=== PATIENT | male | born 1975 | race Caucasian/White ===

== ENCOUNTER 2017-01-13 11:51 | Observation (INO) ==
[2017-01-13] MEDS ORDERED: Ondansetron 4 MG/2 ML VIAL IVP PRN (15:44)
[2017-01-13] MEDS ORDERED: Acetaminophen 325 MG TABLET PO PRN (15:44)
[2017-01-13] MEDS ORDERED: Naloxone 0.4 MG/ML INJ IVP PRN (15:44)
[2017-01-13] MEDS ORDERED: 0.9 % Sodium Chloride 1,000 ML IVC SCH (15:45)
[2017-01-13] MEDS ORDERED: *HR* LORazepam 2 MG/ML VIAL IVP PRN (15:49)
--- NOTE | 2017-01-13 15:53 | Internal Med History&Physical ---
Date of Encounter: 01/13/17 Time of Encounter: 15:15 Assessment and Plan (1) New onset seizure Current visit: Yes Status: Acute Uncertain etiology. Will use when necessary IV Ativan for repeat seizures. IV hydration. Seizure precautions. CT head done in the emergency room showed no acute abnormality. Mild leukocytosis and metabolic acidosis and lactic acidosis likely related to seizure. Urine drug screen was negative. Continue telemetry monitoring and cycle troponins. Check MRI brain. Neurology consult. (2) Lactic acidosis Current visit: Yes Status: Acute Internal Medicine - H&P: HPI Chief complaint: Seizure Admitted From: Emergency Dept Plans for Post Hospital Care: Home History of present illness: Mr. Antonio is a 41 year old male with no significant past medical history and no medical follow-up is brought in by family with complaints of witnessed seizure this morning. Patient was transferred from [place] emergency room. Patient is currently alert and oriented however does not wish to provide detailed history, which is obtained from his at bedside. Patient is usually healthy and never sees a doctor and had no previous hospitalizations. He was in his usual state of health until this morning when his heard a sound from his room and found him to be thrashing on the ground, "like a fish out of water". No tongue bite but urinary incontinence is reported. He is jerking movements went on for at least 10 minutes before the EMS arrived after which his eyes continue to be ruled out and he was trying to grab the surrounding things onto himself. He received a dose of IV Ativan by EMS. No repeat episodes. He was noted to have some confusion and drowsiness immediately after this episode and his mental status gradually returned to baseline. No history of prior seizures, head trauma, intracranial bleed or malignancy in the past. Patient occasionally smokes marijuana but no alcohol use, methamphetamines and prescription drug abuse. Past Med Surg Social Fam HX - Past Medical History Medical history: no medical history Psychiatric history: no psych history - Past Surgical History Surgical History: no surgical history - Social History Smoking Status: Never smoker Smokeless Tobacco Status: No Alcohol use: none Drug use: marijuana Current living situation: Home, With Family Activity Level: Independent ambulation Recent Out of Country Travel Within the Last 8 Weeks: No - Family History Mother Hx Family Cardiac Disorders: Yes Hx Family Respiratory Disorders: Yes Internal Medicine - H&P: Meds No Known Home Drugs 01/13/17 [History] Allergies No Known Allergies Allergy (Verified 01/13/17 09:24) All Systems PM: A 10-system review of systems was performed and is negative for pertinent findings except as documented above in the HPI. - Constitutional Constitutional: no chills, no fever(s), no night sweats - EENT Eyes: no change in vision, no discharge, no pain, no photophobia Ears: no ear discharge, no ear pain, no tinnitus Nose, mouth and throat: no dysphagia, no nasal discharge, no neck pain, no sore throat - Cardiovascular Cardiovascular ROS IM: no chest pain, no diaphoresis, no dyspnea, no lightheadedness, no palpitations, no syncope - Respiratory Respiratory: no cough, no dyspnea, no wheezing, no excessive phlegm production - Gastrointestinal Gastrointestinal: no abdominal pain, no diarrhea, no hematemesis, no hematochezia, no melena, no nausea, no vomiting - Musculoskeletal Musculoskeletal ROS IM: no numbness, no tingling - Integumentary Integumentary IM: no rash, no unusual bruising - Neurological Neurological ROS: abnormal movements, behavioral changes, confusion, convulsions - Hematologic/Lymphatic Hematologic/Lymphatic: no easy bruising - Constitutional Vitals: Temp Pulse Resp BP Pulse Ox 97.8 F 82 15 124/74 99 01/13/17 13:21 01/13/17 13:21 01/13/17 13:21 01/13/17 13:21 01/13/17 13:21 General appearance: Present: A&O X 3, answers questions appropriately - Respiratory Respiratory exam: Present: CTAB. Absent: accessory muscle use, rales, rhonchi, wheezes - Cardiovascular Cardiovascular exam: Present: RRR, +S1, +S2. Absent: diastolic murmur, gallop, rubs, systolic murmur - GI/Abdominal GI/Abdominal exam: Present: normal bowel sounds, soft, no peritoneal signs. Absent: distended, tenderness - Extremities Exam Extremities exam: Present: full ROM, warm, radial pulses palpable and symetrical. Absent: calf tenderness, cyanotic, pedal edema - Neurological Exam Neurological exam: Present: CN II-XII intact, oriented X3, no focal deficits. Absent: pronater drift, facial droop, speech deficit - Skin Skin exam: Present: dry, intact Internal Med - H&P Results - EKG Data -: EKG Interpreted by Myself EKG shows normal: sinus rhythm
--- NOTE | 2017-01-13 17:02 | Neurology - Consult Note ---
Date of Encounter: 01/13/17 Time of Encounter: 16:55 Assessment and Plan (1) New onset seizure Current Visit: Yes Status: Acute one isolated generalized seizure activity, likely provoked by sleep deprivation and stress. no other significant provoking factors noted. No intermittent jerking or starring spells reported. laboratory studies are still pending. May be a good idea to obtain urine drug screen. Currently patient has fully recovered and has non focal neurological examination with normal mentation. Will obtain MRI of brain to rule out intracranial abnormality. Will not recommend antiepiletpic therapy at this time. EEG can be arranged as outpatient. Patient can be followed up in neurology clinic within one or two weeks. History of Present Illness Chief complaint: seizure HPI: Mr. Antonio is a 41 year old male with no significant PMH who developed witnessed seizure. This occurred this morning. heard a noise and saw him fell on the floor and 'flipping like a fish'. He was face down and was having ' shaking activity', apparently for quite prolonged of the time, may be about 10 minutes, after which he became confused and combative and tried to get up but often went down again. The whole seizure lasted about 20 minutes?. No tongue biting, but has urinary incontinence. CT of head showed no acute intracranial abnormality. Patient is currently asymptomatic. He did not remember anything regarding the seizure. reports that he has been under lots of stress lately due to of friend. He tends to stay very late at night been having difficulty sleeping. states that he stayed all night long last night before the seizure. No alcohol or other drugs involved, except 'smoke pot like every one does'. Past Med Surg Social Fam HX - Past Medical History Medical history: no medical history Psychiatric history: no psych history - Past Surgical History Surgical History: no surgical history - Social History Smoking Status: Never smoker Smokeless Tobacco Status: No Alcohol use: none Drug use: marijuana - Family History Mother Hx Family Cardiac Disorders: Yes Hx Family Respiratory Disorders: Yes Medications and Allergies No Known Home Drugs 01/13/17 [History] Allergies No Known Allergies Allergy (Verified 01/13/17 09:24) All Systems: A 10-system review of systems was performed and is negative for pertinent findings except as documented above in the HPI. Physical Examination - Vital Signs Vital Signs: Initial Vital Signs Temp Pulse Resp BP Pulse Ox 97.8 F 82 15 124/74 99 01/13/17 13:21 01/13/17 13:21 01/13/17 13:21 01/13/17 13:21 01/13/17 13:21 - Constitutional General appearance: comfortable - Neurologic Sensorimotor examination: intact Detailed motor examination: full strength in all major muscle groups Motor examination - right side: 11/04: deltoids, biceps, triceps, wrist flexion, wrist extension, route delivery supervisor, hip flexors, tibialis Anterior, quadriceps, toe extension (EHL), plantarflexion Motor examination - left side: 11/04: deltoids, biceps, triceps, wrist flexion, wrist extension, hip flexors, route delivery supervisor, quadriceps, tibialis Anterior, toe extension (EHL), plantarflexion Detailed sensory examination: intact Posture: other (None) Reflex and gait examination: intact Reflexes: Biceps: 2+, Triceps: 2+, Brachioradialis: 2+, Patella: 2+, Achilles: 2 + Mental Status Examination: awake, alert, oriented to person, oriented to place, oriented to time, follows commands appropriately, answers questions appropriately, no agnosia, no aphasia, no aproxia Cranial nerve examination: PERRL, EOMI, visual quijano intact, corneal reflexes brisk symmetrically, sensory to face intact, mastication intact, no facial asymmetry is present, no dysarthria, hearing is intact symmetrically, soft palate elevates bilaterally upon phonation, gag reflex intact, flexes SCM and trapezius muscles symmetrically with full power, tongue protrudes midline, no atrophy or facial fasiculations present Cerebellar examination: no dysmetria, performs finger to nose and heel to novak symmetrically without ataxia, no gait ataxia, no truncal ataxia, no difficulty with rapid alternating movements Consult Discharge Plan - Plan Referrals: NO,PCP [Primary Care Provider] -
[2017-01-13 18:52] VITALS: BP 116/69
--- NOTE | 2017-01-24 07:42 | Discharge Summary ---
Date of Encounter: 01/13/17 Time of Encounter: 20:00 - Discharge Diagnosis (1) New onset seizure Priority: Primary Status: Inactive (2) Lactic acidosis Priority: Primary Status: Acute - Discharge Medications Home Medications: No Known Home Drugs 01/13/17 [History] Allergies/Adverse Reactions: Allergies No Known Allergies Allergy (Verified 01/13/17 09:24) Date of admission: 01/13/17 13:07 Primary care physician: PCP NO Consults: 01/13/17 15:46 Consult to Neurology [CONS] Routine Consulting Provider: [facility] Reason for Consult: New onset generalized tonic clonic seizure Call Completed: No - Patient Status Disposition: Left Against Medical Advice Condition: Fair Functional capacity at discharge: independent ambulation - Discharge Instructions Follow Up With: HELADIO,PCP [Primary Care Provider] - Skinny Rojas MD [Partnered Physician] - (1-2 weeks) Hospital course: Mr. Antonio is a 41 year old male with no significant medical history, admitted with new onset of generalized seizures. Initial workup in the ER was negative. CT head showed no acute abnormality. MRI brain was ordered, which showed no acute abnormality. Neurology evaluation was completed who recommended no AED treatment for now, but to f/up as outpatient for EEG. Patient wanted to be discharged on the night of admission, after my shift ended , and apparently signed out AMA per nursing notes. He was instructed not to drive until Neurology f/up by RN and he verbalized that he does not drive. He was otherwise stable. - Time Spent with Patient Total time spent providing and/or coordinating discharge services: - Constitutional Vitals: Temp Pulse Resp BP Pulse Ox 98.9 F 61 14 116/69 97 01/13/17 18:49 01/13/17 18:49 01/13/17 18:49 01/13/17 18:49 01/13/17 18:49 General appearance: Present: A&O X 3, answers questions appropriately
== END 2017-01-13 20:20 | disposition left against medical advice (07) ==
LOC: 3BNU
PROVIDERS: ADMIT Internal Medicine; ATTEND Nurse Practitioner Family